=== PATIENT | female | born 1990 ===

== ENCOUNTER 2017-07-04 21:54 | Inpatient (IN) ==
[2017-07-04] MEDS ORDERED: ONDANSETRON 4 MG/2 ML VIAL IV PRN (22:33)
[2017-07-04] MEDS ORDERED: BUTORPHANOL 2 MG/ML VIAL IV PRN (22:33)
[2017-07-05] MEDS: CLINDAMYCIN INJ 900 MG in PREMIX 1 EACH IV SCH ×2 (01:46→09:50)
[2017-07-05 02:02] LABS: Hematocrit 37.6 VOL% (35.7-47.0); Hemoglobin 12.8 GM/DL (12.0-16.0); Mean Corpuscular Hemoglobin 32 PG (27-34); Mean Platelet Volume 10.1 FL (9.6-12.0); Platelet Count 266 T/CUMM (130-400); Red Cell Distribution Width 12.5 % (9.3-17.3); White Blood Count 15.1 T/CUMM (4-12)
[2017-07-05 02:03] LABS: Basophils # 0.1 10*3/uL (0.0-0.2); Basophils % 0.5 % (0.0-0.8); Eosinophils # 0.3 10*3/uL (0.0-0.87); Eosinophils % 1.9 % (0.00-10.9); Immature Granulocytes % 1.5 %; Immature Granulocytes Absolute 0.23 #; Lymphocytes # 2.2 10*3/uL (1.4-4.0); Lymphocytes % 14.3 % (21.3-54.2); Monocytes # 1.1 10*3/uL (0.11-0.8); Monocytes % 7.4 % (1.7-12.7); Neutrophils # 11.2 10*3/uL (1.4-7.4); Neutrophils % 74.4 % (38.7-73.9)
[2017-07-05 03:20] LABS: HIV Antigen/Antibody Result Nonreactive (Nonreactive); Hepatitis B Surface Ag Quant 0.24 Index; Hepatitis B Surface Ag Result Negative (Negative)
[2017-07-05] MEDS: LACTATED RINGERS 1,000 ML IV SCH ×2 (04:20→07:55)
[2017-07-05] MEDS ORDERED: OXYTOCIN/LR 20 UNIT/1,000 ML BAG IV SCH (06:30)
[2017-07-05] MEDS ORDERED: CITRIC ACID/SODIUM CITRATE 30 ML UDCUP PO ONE (07:13)
[2017-07-05] MEDS ORDERED: ePHEDrine 50 MG/ML AMP IV PRN (07:13)
[2017-07-05] MEDS ORDERED: PROMETHAZINE 25 MG/1 ML VIAL IM ONE (07:13)
[2017-07-05] MEDS ORDERED: diphenhydrAMINE 50 MG/1 ML VIAL IV PRN ×2 (07:13)
[2017-07-05] MEDS ORDERED: FAMOTIDINE 20 MG/2 ML VIAL IV ONE (07:13)
[2017-07-05] MEDS ORDERED: LACTATED RINGERS 250 ML IV PRN (07:13)
[2017-07-05] MEDS ORDERED: hydrOXYzine HCL 25 MG/1 ML VIAL IM PRN (07:13)
[2017-07-05] MEDS ORDERED: LACTATED RINGERS 1,000 ML IV ONE (07:13)
[2017-07-05] MEDS ORDERED: fentaNYL 2 MCG/ROPIV 0.2% EPID 150 ML EPIDURAL SCH (07:30)
[2017-07-05] MEDS ORDERED: METHYLERGONOVINE 0.2 MG/1 ML AMP ONE (10:06)
[2017-07-05] MEDS ORDERED: MEPERIDINE 50 MG/1 ML VIAL ONE (10:06)
[2017-07-05] MEDS ORDERED: LIDOCAINE 1% 50 ML VIAL ONE (10:06)
[2017-07-05] MEDS ORDERED: miSOPROStol 200 MCG TABLET ONE (10:06)
[2017-07-05] MEDS ORDERED: IBUPROFEN 800 MG TABLET PO PRN (11:24)
[2017-07-05] MEDS ORDERED: ONDANSETRON 4 MG/2 ML VIAL IV PRN (11:24)
[2017-07-05] MEDS ORDERED: WITCH HAZEL PADS 100/JAR TOP PRN (11:24)
[2017-07-05] MEDS ORDERED: HYDROCORTISONE 2.5% RECTAL CREAM 30 GM TUBE TOP PRN (11:24)
[2017-07-05] MEDS ORDERED: LANOLIN 50% CREAM 0.3 OZ TUBE TOP PRN (11:24)
[2017-07-05] MEDS ORDERED: BENZOCAINE 20%/MENTHOL 0.5% SPRAY 56 GM CAN TOP PRN (11:24)
[2017-07-05] MEDS ORDERED: OXYTOCIN/LR 20 UNIT/1,000 ML BAG IV ONE (11:24)
[2017-07-05] MEDS ORDERED: ACETAMINOPHEN 325 MG TABLET PO PRN (11:24)
[2017-07-05] MEDS ORDERED: MEASLES/MUMPS/RUBELLA VACCINE 0.5 ML VIAL SUBCUT ONE (11:24)
[2017-07-05] MEDS ORDERED: RHO(D) IMMUNE GLOBULIN 300 MCG SYRINGE IM ONE (11:24)
[2017-07-05] MEDS ORDERED: oxyCODONE/ACETAMINOPHEN 5-325 MG TABLET PO PRN ×2 (11:24)
[2017-07-05] MEDS ORDERED: BISACODYL 10 MG SUPP RECTAL PRN (11:24)
[2017-07-05] MEDS ORDERED: DIPH/TET/ACEL PERT BOOSTER VACCINE 0.5 ML VIAL IM ONE (11:24)
[2017-07-05 12:05] LABS: Cord Venous Blood HCO3 25.7 MMOL/L; Cord Venous Blood PCO2 44.8 MMHG; Cord Venous Blood PO2 43.5 MMHG
[2017-07-05] MEDS: DOCUSATE SODIUM 100 MG CAPSULE PO SCH (21:32)
[2017-07-06 05:28] LABS: Basophils # 0.1 10*3/uL (0.0-0.2); Basophils % 0.4 % (0.0-0.8); Eosinophils # 0.2 10*3/uL (0.0-0.87); Eosinophils % 1.7 % (0.00-10.9); Hematocrit 32.7 VOL% (35.7-47.0); Immature Granulocytes Absolute 0.14 #; Lymphocytes # 2.1 10*3/uL (1.4-4.0); Lymphocytes % 15.1 % (21.3-54.2); Mean Corpuscular HGB Conc 33.6 GM/DL (32-36); Mean Corpuscular Hemoglobin 32 PG (27-34); Mean Corpuscular Volume 94.5 FL (87-102); Mean Platelet Volume 9.9 FL (9.6-12.0); Monocytes # 0.9 10*3/uL (0.11-0.8); Monocytes % 6.7 % (1.7-12.7); Neutrophils # 10.3 10*3/uL (1.4-7.4); Neutrophils % 75.1 % (38.7-73.9); Platelet Count 233 T/CUMM (130-400); Red Blood Count 3.46 MC/CUMM (3.8-5.5); Red Cell Distribution Width 12.6 % (9.3-17.3); White Blood Count 13.8 T/CUMM (4-12)
[2017-07-06] MEDS: DOCUSATE SODIUM 100 MG CAPSULE PO SCH (09:54)
[2017-07-06 10:53] VITALS: BP 114/70
== END 2017-07-06 14:49 | disposition home or self-care (01) | DRG 560 ==
LOC: N.LDOUT 21:54 → N.LD 22:01 → N.OB 07-05 23:14
PROVIDERS: ADMIT Specialist; ATTEND Specialist